=== PATIENT | female | born 2000 | race Caucasian/White ===

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

== ENCOUNTER 2018-05-11 19:27 | Emergency (ER) | payer OTHER ==
--- NOTE | 2018-05-11 19:29 | ER Report ---
History and Physical Time Seen By MD: 19:28 HPI/ROS CHIEF COMPLAINT: Allergic reaction to mushrooms HISTORY OF PRESENT ILLNESS: 18-year-old female with a history of numerous food allergies who carries an epinephrine pen was eating at [email or web address]. She was having brown gravy on her food, which she did not pains mushrooms. She began to have some throat swelling sensation and some flushing. She took her epinephrine pen and came to the emergency department. REVIEW OF SYSTEMS: Respiratory: No cough, no dyspnea. Cardiovascular: No chest pain, no palpitations. Gastrointestinal: No vomiting, no abdominal pain. Musculoskeletal: No back pain. Allergies: Coded Allergies: cashew nut (Verified Allergy, Severe, 05/11/18) mushroom (Verified Allergy, Severe, 05/11/18) peanut (Verified Allergy, Severe, 05/11/18) clarithromycin (Verified Adverse Reaction, Severe, HIVES, 05/11/18) Uncoded Allergies: SPRAY PAINT AIRSOLE (Allergy, Severe, 11/02/16) Home Meds Active Scripts Prednisone (PREDNISONE) 20 Mg Tablet, 20 MG PO QDAY for allergic reaction, #4 One by mouth daily for allergic reaction treatment Prov:LALITO GE DO 05/11/18 Epinephrine (EPIPEN 2-ABRAHAN) 0.3 Mg/0.3 Ml Pen.injctr, 0.3 MG IM PRN for allergic reaction, #1 1 Refill Prov:LALITO GE DO 05/11/18 Reported Medications Fluticasone/Salmeterol (ADVAIR 250-50 DISKUS) 1 Each Disk.w.dev, 1 EACH IH 05/11/18 Albuterol Sulfate 0.083% (ALBUTEROL SULFATE 0.083%) 2.5 Mg/3 Ml Vial.neb, 2.5 MG INH, INH 11/11/17 Budesonide/Formoterol Fumarate (SYMBICORT 160-4.5 MCG INHALER) 10.2 Gm Inh, 10.2 GM INH, INH 10/02/17 Norgestimate-Ethinyl Estradiol (SPRINTEC) 1 Each Tablet, 1 EACH PO QDAY 09/09/17 Discontinued Scripts Ondansetron (ZOFRAN ODT) 4 Mg Tab.rapdis, 4 MG PO every 6 hours PRN for NAUSEA/VOMITING, #10 TAB TAKE 1 TABLET BY MOUTH EVERY 12 HOURS Prov:LALITO GE DO 05/11/18 Reviewed Nurses Notes: Yes Old Medical Records Reviewed: Yes Hx Smoking: No Smoking Status: Never Smoker Exposure to Second Hand Smoke?: No Hx Substance Use Disorder: No Hx Alcohol Use: No Constitutional Vital Sign - Last 24 Hours 05/11/18 05/11/18 05/11/18 05/11/18 19:27 19:30 19:35 19:57 Temp 98.7 Pulse ??? 113 116 Resp 24 43 B/P (MAP) 139/88 (105) 139/88 Pulse Ox 100 100 O2 Delivery Room Air 05/11/18 05/11/18 05/11/18 20:00 20:27 20:30 Pulse 94 Resp 23 B/P (MAP) 138/80 (99) 128/76 (93) Pulse Ox 98 Intake and Output 05/11/18 05/11/18 05/12/18 15:00 23:00 07:00 Intake Total 1000 ml Balance 1000 ml Physical Exam General Appearance: The patient is alert, has no immediate need for airway protection and no current signs of toxicity. Vital signs stable, afebrile, pulse ox normal HEENT: Pupils equal and round no injection. TMs normal, oropharynx with mild erythema, no edema or signs of obstruction Respiratory: Chest is non tender, lungs are clear to auscultation. No wheezing Cardiac: regular rate and rhythm Gastrointestinal: Abdomen is soft and non tender, no masses, bowel sounds normal. Musculoskeletal: Neck: Neck is supple and non tender. Flushing of skin on neck, face and chest Extremities have full range of motion and are non tender. Skin: Flushing of skin on face, neck, chest, arms DIFFERENTIAL DIAGNOSIS: After history and physical exam differential diagnosis was considered for allergic reaction, anaphylaxis, bronchospasm, Medical Decision Making ED Course/Re-evaluation Clinical Indication for ER IV: Hydration, IV Access ED Course Patient was admitted to an examination room. H&P was done. The differential diagnoses was considered. On clinical examination. Patient's having a mild allergic reaction. She staved off a serious reaction by giving herself her EpiPen. Patient's treated with IV Solu-Medrol, Benadryl, liter saline. She is observed for an hour. Her symptoms are resolving. She'll be discharged home. Prednisone taper 20 mg per day for 5 days. Patient was written a refill prescription for EpiPen. Patient advised Benadryl 25 mg 3 times daily as needed for itching. Patient cautioned return to the ER for any worsening Decision to Disposition Date: May 11, 2018 Decision to Disposition Time: 20:18 Depart Departure Latest Vital Signs Vital Signs Date Time Temp Pulse Resp B/P (MAP) Pulse Ox O2 Delivery O2 Flow Rate FiO2 05/11/18 20:30 128/76 (93) 05/11/18 20:27 94 23 98 05/11/18 19:35 98.7 Room Air Impression: Primary Impression: Allergic reaction Condition: Improved Disposition: HOME OR SELF-CARE New Scripts Prednisone (PREDNISONE) 20 Mg Tablet 20 MG PO QDAY for allergic reaction, #4 One by mouth daily for allergic reaction treatment Prov: LALITO GE DO 05/11/18 Epinephrine (EPIPEN 2-ABRAHAN) 0.3 Mg/0.3 Ml Pen.injctr 0.3 MG IM PRN for allergic reaction, #1 1 Refill Prov: LALITO GE DO 05/11/18 Patient Instructions: General Allergic Reaction (ED) Additional Instructions: Take Benadryl 25 mg every 6-8 hours as needed for itching or flushing Return to the ER for any worsening Problem Qualifiers Primary Impression: Allergic reaction Encounter type: initial encounter Qualified Codes: T78.40XA - Allergy, unspecified, initial encounter LALITO GE DO May 11, 2018 19:29
[2018-05-11] MEDS ORDERED: diphenhydrAMINE 50 MG/ML VIAL IVP ONE (19:35)
[2018-05-11] MEDS ORDERED: NS(*) 0.9% 1000 ML BAG 1,000 ML IV ONE (19:35)
[2018-05-11] MEDS ORDERED: methylPREDNIS SUCC 125 MG/2ML IVP ONE (19:35)
[2018-05-11] MEDS ORDERED: FLUT1DIS28 IH (19:48)
[2018-05-11] MEDS ORDERED: ONDANSETRON 4 MG ODT TH SL ONE (20:20)
[2018-05-11] MEDS ORDERED: ONDA4TAB PO (20:20)
[2018-05-11 20:30] VITALS: BP 128/76
[2018-05-11] MEDS ORDERED: EPIN0.3P15 IM (20:33)
[2018-05-11] MEDS ORDERED: PRED20TA6 PO (20:33)
== END 2018-05-11 20:42 | disposition home or self-care (01) ==
LOC: ER 19:36
DX: T78.40XA Allergy, unspecified, initial encounter (principal)
CPT/HCPCS: 96361; 96374; 96375; 99284; J1200; J2930; J7030; S0119

== ENCOUNTER 2018-09-29 11:30 | Emergency (ER) | payer OTHER ==
[~2018-09-29 11:30] MED LIST changes: +FLUT1DIS28 IH; +PRED20TA6 PO
--- NOTE | 2018-09-29 11:33 | ER Report ---
History and Physical Time Seen By MD: 11:32 HPI/ROS CHIEF COMPLAINT: Allergic reaction HISTORY OF PRESENT ILLNESS: This is a 18-year-old female presents to the emergency department for an allergic reaction. Patient states about 35 minutes prior to arrival, she was eating a jim bar, she has a known history of not allergy,, there were no nuts in the jim bar itself however she states that she felt her throat become itchy, she then took 50 mg of by mouth Benadryl waited for a little bit, did not administer her EpiPen, she decided to come in for further evaluation. Upon arrival patient is sitting erect, breathing normally, no wheezing or stridor. She states that she feels as though her throat is still itchy, may be slightly more difficult to breathe but denies shortness of breath. Otherwise healthy. No fevers or chills. No chest pain. No rashes. REVIEW OF SYSTEMS: Constitutional: No fever, no chills. Eyes: No discharge. ENT: As above. Cardiovascular: No chest pain, no palpitations. Respiratory: As above. Gastrointestinal: No abdominal pain, no vomiting. Genitourinary: No hematuria. Musculoskeletal: No back pain. Skin: No rashes. Neurological: No headache. Allergies: Coded Allergies: cashew nut (Verified Allergy, Severe, 05/11/18) mushroom (Verified Allergy, Severe, 05/11/18) peanut (Verified Allergy, Severe, 05/11/18) clarithromycin (Verified Adverse Reaction, Severe, HIVES, 05/11/18) Uncoded Allergies: SPRAY PAINT AIRSOLE (Allergy, Severe, 11/02/16) Home Meds Active Scripts Prednisone (PREDNISONE) 20 Mg Tablet, 20 MG PO BID, #10 TAB Prov:DRE DALE POOL HAND-BC 09/29/18 Epinephrine (EPIPEN 2-ABRAHAN) 0.3 Mg/0.3 Ml Pen.injctr, 0.3 MG IM PRN for allergic reaction, #1 1 Refill Prov:LALITO GE DO 05/11/18 Reported Medications Fluticasone/Salmeterol (ADVAIR 250-50 DISKUS) 1 Each Disk.w.dev, 1 EACH IH 05/11/18 Albuterol Sulfate 0.083% (ALBUTEROL SULFATE 0.083%) 2.5 Mg/3 Ml Vial.neb, 2.5 MG INH, INH 11/11/17 Budesonide/Formoterol Fumarate (SYMBICORT 160-4.5 MCG INHALER) 10.2 Gm Inh, 10.2 GM INH, INH 10/02/17 Norgestimate-Ethinyl Estradiol (SPRINTEC) 1 Each Tablet, 1 EACH PO QDAY 09/09/17 Discontinued Scripts Prednisone (PREDNISONE) 20 Mg Tablet, 20 MG PO QDAY for allergic reaction, #4 One by mouth daily for allergic reaction treatment Prov:LALITO GE DO 05/11/18 Past Medical/Surgical History The patient has a past medical and surgical history born glasses, asthma, bilateral foot surgery. Reviewed Nurses Notes: Yes Hx Smoking: No Smoking Status: Never Smoker Exposure to Second Hand Smoke?: No Hx Substance Use Disorder: No Hx Alcohol Use: No Constitutional Vital Sign - Last 24 Hours 09/29/18 09/29/18 09/29/18 09/29/18 11:30 11:33 11:33 11:45 Temp 98.2 Pulse ??? 106 101 Resp 18 B/P (MAP) 149/102 149/102 (118) Pulse Ox 98 O2 Delivery Room Air 09/29/18 09/29/18 09/29/18 09/29/18 12:00 12:15 12:30 12:43 Pulse 88 87 ??? B/P (MAP) 128/94 (105) 136/96 (109) Pulse Ox 98 98 09/29/18 12:45 Pulse 85 Pulse Ox 98 Physical Exam General Appearance: The patient is alert, has no immediate need for airway protection and no signs of toxicity. Eyes: Pupils equal and round no pallor or injection. ENT, Mouth: Mucous membranes are moist. Mild erythema to the posterior oropharynx, no edema. Respiratory: There are no retractions, lungs are clear to auscultation. Cardiovascular: Regular rate and rhythm. Gastrointestinal: Abdomen is soft and non tender, no masses, bowel sounds normal. Neurological: Alert and oriented 4. Moving all extremities. Following all commands. No focal neuro deficits. Skin: Warm and dry, no rashes. Musculoskeletal: Neck is supple non tender. Extremities are nontender, nonswollen and have full range of motion. DIFFERENTIAL DIAGNOSIS: After history and physical exam differential diagnosis was considered for allergic reaction, anaphylaxis. Medical Decision Making ED Course/Re-evaluation Clinical Indication for ER IV: Hydration, IV Access ED Course The patient was admitted to room. A history and physical obtained. Differential diagnoses were considered. IV was started. A 1 L normal saline bolus was given. Patient had arty taken 50 mg by mouth Benadryl, she was given 20 mg famotidine and 125 mg Solu-Medrol. Continue to monitor the patient for approximately an hour and a half, patient states she is feeling much better, no rebound symptoms, the patient's was instructed to keep her EpiPen's with her at all times in addition to that she can take Benadryl should she have a repeat allergic reaction. Patient was started on a 5 day burst of steroids. Patient was in agreement with this plan care, she was discharged home. Decision to Disposition Date: Sep 29, 2018 Decision to Disposition Time: 12:47 Depart Departure Latest Vital Signs Vital Signs Date Time Temp Pulse Resp B/P (MAP) Pulse Ox O2 Delivery O2 Flow Rate FiO2 09/29/18 12:45 85 98 09/29/18 12:43 136/96 (109) 09/29/18 11:33 98.2 18 Room Air Impression: Primary Impression: Allergic reaction Condition: Improved Disposition: HOME OR SELF-CARE New Scripts Prednisone (PREDNISONE) 20 Mg Tablet 20 MG PO BID, #10 TAB Prov: DRE DALE 09/29/18 Patient Instructions: General Allergic Reaction (ED) Additional Instructions: Please stop using the Advair for the next 5 days while using your systemic steroids. Be sure to keep your epi pens and Benadryl with you at all times. Sure to use your EpiPen please follow up in the nearest emergency department for reevaluation. Drink plenty of water. Get plenty of rest. Return to the emergency department for any concerns or worsening symptoms. Problem Qualifiers Primary Impression: Allergic reaction Encounter type: initial encounter Qualified Codes: T78.40XA - Allergy, unspecified, initial encounter DRE DALE Sep 29, 2018 11:33
[2018-09-29] MEDS ORDERED: ANAPHYLAXIS KIT 1 EA ONE (11:34)
[2018-09-29] MEDS ORDERED: FAMOTIDINE(*) 20MG/50ML PREMIX 50 ML IVPB ONE (11:40)
[2018-09-29] MEDS ORDERED: methylPREDNIS SUCC 125 MG/2ML IVP ONE (11:40)
[2018-09-29] MEDS ORDERED: NS(*) 0.9% 1000 ML BAG 1,000 ML IV ONE (11:40)
[2018-09-29 12:43] VITALS: BP 136/96
[2018-09-29] MEDS ORDERED: PRED20TA6 PO (12:48)
== END 2018-09-29 12:55 | disposition home or self-care (01) ==
LOC: ER 11:30
DX: T78.1XXA Other adverse food reactions, not elsewhere classified, initial encounter (principal)
CPT/HCPCS: 96361; 96374; 96375; 99284; J2930; J3490; J7030

== ENCOUNTER 2018-11-23 12:42 | Emergency (ER) | payer OTHER ==
[2018-11-23] MEDS ORDERED: ANAPHYLAXIS KIT 1 EA ONE (12:47)
--- NOTE | 2018-11-23 13:21 | ER Report ---
History and Physical Time Seen By MD: 13:00 Hx. of Stated Complaint: ALLERGIC REACTION HPI/ROS Known nut allergy. Ate a cookie today with nuts. [place] itching and possible swelling in her throat. Used her epi pen, and now feels improved. No rash. No wheezing, no n/v/d. Remainder of the 14 system rev: Yes Allergies: Coded Allergies: cashew nut (Verified Allergy, Severe, 11/23/18) mushroom (Verified Allergy, Severe, 11/23/18) peanut (Verified Allergy, Severe, 11/23/18) clarithromycin (Verified Adverse Reaction, Severe, HIVES, 11/23/18) Uncoded Allergies: SPRAY PAINT AIRSOLE (Allergy, Severe, 11/02/16) Home Meds Active Scripts Epinephrine (EPIPEN 2-ABRAHAN) 0.3 Mg/0.3 Ml Pen.injctr, 0.3 MG IM PRN for allergic reaction, #1 1 Refill Prov:LUMAREYChris Clemente DO 05/11/18 Reported Medications Fluticasone/Salmeterol (ADVAIR 250-50 DISKUS) 1 Each Disk.w.dev, 1 EACH IH 05/11/18 Albuterol Sulfate 0.083% (ALBUTEROL SULFATE 0.083%) 2.5 Mg/3 Ml Vial.neb, 2.5 MG INH, INH 11/11/17 Budesonide/Formoterol Fumarate (SYMBICORT 160-4.5 MCG INHALER) 10.2 Gm Inh, 10.2 GM INH, INH 10/02/17 Norgestimate-Ethinyl Estradiol (SPRINTEC) 1 Each Tablet, 1 EACH PO QDAY 09/09/17 Discontinued Scripts Prednisone (PREDNISONE) 20 Mg Tablet, 20 MG PO BID, #10 TAB Prov:DRE DALE [employer]AD [employer] DEVELOPER-BC 09/29/18 Hx Smoking: No Smoking Status: Never Smoker Exposure to Second Hand Smoke?: No Hx Substance Use Disorder: No Hx Alcohol Use: No Constitutional Vital Sign - Last 24 Hours 11/23/18 11/23/18 11/23/18 11/23/18 12:46 13:00 13:30 14:00 Temp 98.2 Pulse 124 111 105 104 Resp 16 B/P (MAP) 167/92 (117) 127/83 (98) 119/79 (92) Pulse Ox 98 98 97 98 O2 Delivery Room Air Physical Exam General Appearance: The patient is alert, has no immediate need for airway protection and no current signs of toxicity. Eyes: Pupils equal and round no injection. Respiratory: Chest is non tender, lungs are clear to auscultation. Cardiac: regular rate and rhythm Gastrointestinal: Abdomen is soft and non tender, no masses, bowel sounds normal. Skin: No rashes or lesions. Medical Decision Making ED Course/Re-evaluation ED Course Nut allergy and accidentally ingested a cookie with nuts. Used her epi pen, and had immediate relief. No change in voice. No rash. Given one dose of decadron. Will refill epi pens, and d/c. Decision to Disposition Date: Nov 23, 2018 Decision to Disposition Time: 14:20 Depart Departure Latest Vital Signs Vital Signs Date Time Temp Pulse Resp B/P (MAP) Pulse Ox O2 Delivery O2 Flow Rate FiO2 11/23/18 14:00 104 119/79 (92) 98 11/23/18 12:46 98.2 16 Room Air Impression: Primary Impression: Allergic reaction Condition: Improved Disposition: HOME OR SELF-CARE Patient Instructions: General Allergic Reaction (ED) Problem Qualifiers Primary Impression: Allergic reaction Encounter type: initial encounter Qualified Codes: T78.40XA - Allergy, unspecified, initial encounter ENEDINA YBARRA MD Nov 23, 2018 13:21
[2018-11-23] MEDS ORDERED: DEXAMETHASONE 4 MG TAB PO ONE (13:25)
[2018-11-23 14:00] VITALS: BP 119/79
== END 2018-11-23 14:30 | disposition home or self-care (01) ==
LOC: ER 12:52
DX: T78.1XXA Other adverse food reactions, not elsewhere classified, initial encounter (principal); Z91.018 Allergy to other foods
CPT/HCPCS: 99283; J8540

== ENCOUNTER 2019-03-04 19:12 | Emergency (ER) | payer OTHER ==
--- NOTE | 2019-03-04 19:24 | ER Report ---
History and Physical Time Seen By MD: 19:20 Hx. of Stated Complaint: patient was eating at [employer], started having allergic rx, she took 15m l of childrens benadryl and epi pen. HPI/ROS CHIEF COMPLAINT: Allergic reaction. HISTORY OF PRESENT ILLNESS: This is a 18 year old female. She was eating at the [employer] tonight, and started to have trouble with swallowing and breathing, consistent with food allergy exposure. She was not eating anything she is allergic to, but suspects possible cross-contamination in the kitchen. She took liquid benadryl and her epi-pen and came to the hospital. Rapid heart rate and jittery now as expected, but other symptoms improving. Allergies: Coded Allergies: cashew nut (Verified Allergy, Severe, 03/04/19) mushroom (Verified Allergy, Severe, 03/04/19) peanut (Verified Allergy, Severe, 03/04/19) clarithromycin (Verified Adverse Reaction, Severe, HIVES, 03/04/19) Uncoded Allergies: SPRAY PAINT AIRSOLE (Allergy, Severe, 11/02/16) Home Meds Active Scripts Epinephrine (EPIPEN 2-ABRAHAN) 0.3 Mg/0.3 Ml Pen.injctr, 0.3 MG IM DIRECTED PRN for ALLERGY SYMPTOMS, #1 PACK 0 Refills Prov:GINA ABAD MD 03/04/19 Epinephrine (EPIPEN 2-ABRAHAN) 0.3 Mg/0.3 Ml Pen.injctr, 0.3 MG IM PRN for allergic reaction, #1 1 Refill Prov:LALITO GE DO 05/11/18 Reported Medications Fluticasone/Salmeterol (ADVAIR 250-50 DISKUS) 1 Each Disk.w.dev, 1 EACH IH 05/11/18 Albuterol Sulfate 0.083% (ALBUTEROL SULFATE 0.083%) 2.5 Mg/3 Ml Vial.neb, 2.5 MG INH, INH 11/11/17 Budesonide/Formoterol Fumarate (SYMBICORT 160-4.5 MCG INHALER) 10.2 Gm Inh, 10.2 GM INH, INH 10/02/17 Norgestimate-Ethinyl Estradiol (SPRINTEC) 1 Each Tablet, 1 EACH PO QDAY 09/09/17 Reviewed Nurses Notes: Yes Hx Smoking: No Smoking Status: Never Smoker Exposure to Second Hand Smoke?: No Hx Substance Use Disorder: No Hx Alcohol Use: No Constitutional Vital Sign - Last 24 Hours 03/04/19 03/04/19 03/04/19 03/04/19 19:16 19:27 19:30 19:42 Temp 98.6 Pulse 115 108 95 Resp 24 B/P (MAP) 148/92 138/82 (100) Pulse Ox 98 98 98 O2 Delivery Room Air 03/04/19 03/04/19 03/04/19 19:57 20:00 20:12 Pulse 82 93 B/P (MAP) 127/92 (104) Pulse Ox 99 96 Physical Exam General Appearance: Alert, no acute distress. Eyes: Pupils equal and round no injection. ENT: Normal oral mucosa. Moist mucous membranes. Normal posterior oropharynx. Neck: Neck is supple and non tender. Respiratory: Chest is non tender, lungs are clear to auscultation. Cardiac: Tachycardia, but regular rhythm. Neuro: Alert and oriented x3, no focal deficits. Skin: No rashes or lesions. DIFFERENTIAL DIAGNOSIS: After history and physical exam differential diagnosis was considered for allergic reaction, food. Medical Decision Making ED Course/Re-evaluation Clinical Indication for ER IV: Hydration, IV Access ED Course Given Solu-Medrol 125mg IV, Bendaryl 25mg IV, Pepcid 20mg IV, and a liter of normal saline. Patient is better on re-evaluation later, Prednisone 20mg tablets given, 2 now and 2 tomorrow. Benadryl as needed. Decision to Disposition Date: Mar 04, 2019 Decision to Disposition Time: 20:29 Depart Departure Latest Vital Signs Vital Signs Date Time Temp Pulse Resp B/P (MAP) Pulse Ox O2 Delivery O2 Flow Rate FiO2 03/04/19 20:12 93 96 03/04/19 20:00 127/92 (104) 03/04/19 19:16 98.6 24 Room Air Impression: Primary Impression: Allergic reaction Condition: Improved Disposition: HOME OR SELF-CARE New Scripts Epinephrine (EPIPEN 2-ABRAHAN) 0.3 Mg/0.3 Ml Pen.injctr 0.3 MG IM DIRECTED PRN for ALLERGY SYMPTOMS, #1 PACK 0 Refills Prov: GINA ABAD MD 03/04/19 Patient Instructions: Food Allergy (ED) Additional Instructions: We have given you a dose of steroids tonight, Prednisone 20mg x 2 tablets. Take another dose, Prednisone 20mg x2 tablets tomorrow at noon. Use over the counter Benadryl 25mg tablets every 6 hours as needed for recurrent allergic reaction symptoms and return to the ER if worsening. Problem Qualifiers Primary Impression: Allergic reaction Encounter type: initial encounter Qualified Codes: T78.40XA - Allergy, unspecified, initial encounter GINA ABAD MD Mar 04, 2019 19:24
[2019-03-04] MEDS ORDERED: NS(*) 0.9% 1000 ML BAG 1,000 ML IV ONE (19:25)
[2019-03-04] MEDS ORDERED: FAMOTIDINE(*) 20MG/50ML PREMIX 50 ML IVPB ONE (19:25)
[2019-03-04] MEDS ORDERED: diphenhydrAMINE 50 MG/ML VIAL IVP ONE (19:25)
[2019-03-04] MEDS ORDERED: methylPREDNIS SUCC 125 MG/2ML IVP ONE (19:25)
[2019-03-04 20:30] VITALS: BP 123/76
[2019-03-04] MEDS ORDERED: EPIN0.3P15 IM (20:33)
[2019-03-04] MEDS ORDERED: predniSONE 20 MG TAB PO ONE (20:35)
== END 2019-03-04 20:49 | disposition home or self-care (01) ==
LOC: ER 19:41
DX: T78.40XA Allergy, unspecified, initial encounter (principal)
CPT/HCPCS: 96361; 96365; 96375; 99284; J1200; J2930; J7030; J7512